=== PATIENT | male | born 1970 | race Caucasian/White ===

== ENCOUNTER 2018-08-07 10:01 | Emergency (ER) | payer OTHER ==
[~2018-08-07] VITALS: Ht 177.8 cm; Wt 99.8 kg
[~2018-08-07 10:01] MED LIST: ADVIL100 M1; MOBIC15 MG; SYNTHROID100 MCG; ULTRAM50 MG
[2018-08-07] MEDS ORDERED: SINGULAIR5 MG (10:18)
== END 2018-08-07 18:51 | disposition home or self-care (01) ==
LOC: ER 10:01
DX: K86.2 Cyst of pancreas (principal); R10.84 Generalized abdominal pain

== ENCOUNTER 2019-03-22 06:46 | Emergency (ER) | payer OTHER ==
[~2019-03-22] VITALS: Ht 172.7 cm; Wt 106.6 kg
[~2019-03-22 06:46] MED LIST changes: +SINGULAIR5 MG
[2019-03-22] MEDS ORDERED: TESSALON PERLE100 M1 PO ×2 (12:08→12:09)
[2019-03-22] MEDS ORDERED: PROMETH-CODEIN 65 ML PO ×2 (12:08→12:09)
[2019-03-22] MEDS ORDERED: ULTRACET PO (12:17)
== END 2019-03-22 12:30 | disposition home or self-care (01) ==
LOC: ER 06:46
DX: B34.9 Viral infection, unspecified (principal)